=== PATIENT | female | born 1985 | race Caucasian/White ===

== ENCOUNTER → 2025-02-16 | Outpatient (CLI) | payer BC, SELFPAY ==
--- NOTE | 2025-02-16 08:15 | BI_ITS ---
EXAM: SCRN MAMM (CAD)W/HERRERA BILAT DATE: 02/16/2025 CLINICAL HISTORY: F, Age 40 y/o , SCREENING No family history. TECHNIQUE: SCRN MAMM (CAD)W/HERRERA BILAT COMPARISON: Prior exam(s) dated April 22, 2023.. FINDINGS: TISSUE DENSITY: There are scattered areas of fibroglandular density. Bilateral Breast Mammographic Findings: No significant masses, calcifications or other abnormalities are identified. Stable fat containing bilateral axillary lymph nodes. No suspicious masses, areas of developing architectural distortion, or suspicious calcifications. There has been no significant interval change. BI/SCRN MAMM (CAD)W/HERRERA BILAT IMPRESSION: Stable examination. OVERALL FINAL ASSESSMENT BI-RADS 2: BENIGN RECOMMENDATION: Routine annual follow-up in 1 Year A letter with findings and recommendations will be mailed to the patient. Reading Location: [id number]
--- NOTE | 2025-02-16 14:43 | NEURO_ITS ---
NCS and/or EMG Patient Report Ordering Doctor: Teja Hernandez DATE OF SERVICE: 02/16/25 Tish presents with complaints of numbness and tingling in both hands. Electrodiagnostic findings: Right median motor nerve demonstrates normal distal latency, amplitude and conduction velocity. Left median motor response is w ithin normal limits. Normal ulnar motor response bilaterally. Normal median and ulnar F?waves. Prolonged right median sensory latency at the wrist. Absent right median palmar response. Needle EMG testing was performed in the upper limbs. All muscles tested showed no evidence of denervation with normal motor unit action potentials. Electrodiagnostic impression: This is an abnormal study in the upper limbs. 1. Electrodiagnostic findings suggestive of right-sided median mononeuropathy. This consistent with a mild right carpal tunnel syndrome. There is no electrodiagnostic evidence for a left carpal tunnel syndrome. 2. No electrodiagnostic evidence is noted for cervical radiculopathy. Multi Select Codes Neurology Neurology Interp Codes: 57911-24 Musc test done w/n test comp (interp) (2) and 38444-15 Nrv cndj test 13/> studies (interp)
== END | disposition home or self-care (01) ==
PROVIDERS: PCP Nurse Practitioner Family; Referring Provider Surgery Plastic and Reconstructive Surgery; Visit Provider Surgery Plastic and Reconstructive Surgery
DX: Z12.31 Encounter for screening mammogram for malignant neoplasm of breast (principal); R20.0 Anesthesia of skin; R20.2 Paresthesia of skin
CPT/HCPCS: 77063; 77067; 95886; 95912; 95913